=== PATIENT | female | born 1980 | race Caucasian/White ===

== ENCOUNTER → 2020-09-14 11:59 | Outpatient (CLI) | payer BC, SELFPAY ==
--- NOTE | 2020-09-14 12:05 | XR_ITS ---
PROCEDURE: XR FOOT WT BEARING RT 3V CLINICAL INDICATION: pain COMPARISON: No exams were available for comparison FINDINGS: No fracture or dislocation. No lytic or blastic change. There is normal mineralization. The joint spaces are well-preserved. No significant degenerative/arthritic changes. No erosive changes evident. Other findings:None. IMPRESSION: No acute findings. Dictated by: Jose Boothe MD 09/14/2020 17:23 Jose Boothe MD in [place] 09/14/2020 17:23
--- NOTE | 2020-09-14 12:05 | XR_ITS ---
PROCEDURE: XR FOOT WT BEARING LT 3V CLINICAL INDICATION: pain Posterior foot pain and swelling COMPARISON: No exams were available for comparison FINDINGS: No fracture or dislocation. No lytic or blastic change. There is normal mineralization. The joint spaces are well-preserved. No significant degenerative/arthritic changes. No erosive changes evident. Other findings:None. IMPRESSION: No acute findings. Dictated by: Jose Boothe MD 09/14/2020 17:24 Jose Boothe MD in [place] 09/14/2020 17:24
== END ==
PROVIDERS: PCP Family Medicine; Visit Provider Podiatrist
DX: M76.60 Achilles tendinitis, unspecified leg (principal); M79.672 Pain in left foot; M79.671 Pain in right foot
CPT/HCPCS: 73630